=== PATIENT | female | born 1945 | race Caucasian/White ===

== ENCOUNTER 2020-01-01 09:20 | Emergency (ER) | payer MEDICARE, SELFPAY ==
--- NOTE | ~2020-01-01 | XR_ITS ---
EXAMINATION: XR hip LT min 2V EXAM DATE: 01/01/2020 10:13 INDICATION: No known recent injury provided at this time. Pain of the left hip. TECHNIQUE: Left hip frontal, crosstable lateral and 'frog-leg' projections for interpretation. Ther e is no prior study for comparison. FINDINGS: Smooth left hip femoral head contour, no radiographic evidence of avascular necrosis. Ther e is moderate left hip primary osteoarthritis. There are no acute fractures or dislocations identifie d. There is no subcutaneous gas. The soft tissue is unremarkable. There are no radiopaque foreign bodies. IMPRESSION: Moderate left hip osteoarthritis. Reviewed, dictated and finalized at location A.
[2020-01-01 09:25] VITALS: BP 165/86; PULSE 95; RESP 18; TEMP 37.2; O2SAT 96
--- NOTE | 2020-01-01 09:43 | ED.LOWEXIN ---
HPI - Extremity Injury (Lower) General Chief Complaint: Extremity Injury, Lower Stated Complaint: Left Hip Pain Time Seen by Provider: 01/01/20 09:30 History of Present Illness HPI Narrative: Chronic left hip pain. Worse for the past [address] Ledbetter in clinic and was started on Baclofen and medrol dose pack. After a few days she was feeling much better. Then the pain retrunded worse than before. Dr. Ledbetter suggested therapy. She felt that she was too busy and in too much pain for therapy. She came here hoping that there was something else that we could do. She does not want anything that will make her drowsy. Related Data Allergies Allergy/AdvReac Type Severity Reaction Status Date / Time No Known Allergies Allergy Verified 01/01/20 09:31 Review of Systems Review of Systems: All systems reviewed & are unremarkable except as noted in HPI and below Constitutional: Constitutional: Denies fever(s) Cardiovascular: Cardiovascular: Denies chest pain Respiratory: Respiratory: Denies dyspnea Musculoskeletal: Musculoskeletal: Denies back pain Neurologic: Denies numbness and Denies weakness [facility] Social History Social History Gender identity (if verbalized by the patient): Female Exam Const: General: healthy appearing, no acute distress and alert Orientation/consciousness: patient oriented x3 HENMT: Head: normal to inspection Neck: Neck: normal visual inspection and no lymphadenopathy Chest: Chest palpation & inspection: no tenderness Resp: Effort & Inspection: normal respiratory effort Auscultation: clear to auscultation bilaterally, no rales, no rhonchi and no wheezes Cardio: Jugular venous distension: no JVD Rate: regular rate Rhythm: regular rhythm Heart sounds: no murmurs GI: Inspection: non-distended GI Palp: Yes Soft to palpation and No Tenderness to palpation present (GI) Skin: General skin exam: normal color Neuro: General: patient oriented x3 and moves all extremities Speech: normal speech Extrem: Other: Tender over left hip. signifcant pain with minimal movment of the hip. Psych: Appearance: well kempt Affect: normal affect Course Vital Signs Vital signs: Vital Signs Temperature 37.2 C 01/01/20 09:25 Pulse Rate 95 01/01/20 09:25 Respiratory Rate 18 01/01/20 09:25 Blood Pressure 165/86 H 01/01/20 09:25 Pulse Oximetry 96 01/01/20 09:25 Temperature 37.2 C 01/01/20 09:25 Pulse Rate 78 01/01/20 12:15 Respiratory Rate 19 01/01/20 12:15 Blood Pressure 156/82 H 01/01/20 12:15 Pulse Oximetry 99 01/01/20 12:15 MDM - Extremity Injury (Lower) MDM Narrative Medical decision making narrative: She has moderate arthritis on x-ray. No sign of infection or inflammation on exam. I will prescribe a small amount of tramadol, which will hopefully get her through until she is able to arrange follow-up Medical Records Attestation: I reviewed the patient's medical records. Imaging Data Radiologist's impression: ITS Impressions Hip X-Ray 01/01/20 10:31 IMPRESSION: Moderate left hip osteoarthritis. Discharge Plan Discharge Clinical Impression: Hip osteoarthritis Qualifiers: Osteoarthritis type: unspecified Laterality: left Qualified Code(s): M16.12 - Unilateral primary osteoarthritis, left hip Patient Disposition: Home, Self-Care Condition: Stable Instructions: Osteoarthritis (ED) Prescriptions: New tramadol 50 mg tablet 50 mg PO Q6H PRN (Reason: pain) Qty: 15 RF: 0 Follow-up/Referrals: Yamile,DO Arie [Primary Care Provider] - Discharge Date/Time: 01/01/20 12:15
[2020-01-01] MEDS: ACETAMINOPHEN 500 MG TABLET 1000 MG PO (10:07)
--- NOTE | 2020-01-01 10:10 | PC.NURSE ---
Pt. to XR
[2020-01-01 11:40] VITALS: BP 151/67; PULSE 77; RESP 19; O2SAT 99
[2020-01-01 12:15] VITALS: BP 156/82; PULSE 78; RESP 19; O2SAT 99
== END 2020-01-01 12:15 | disposition home or self-care (01) ==
PROVIDERS: Emergency Provider Emergency Medicine; PCP Student in an Organized Health Care Education/Training Program
DX: M16.12 Unilateral primary osteoarthritis, left hip (principal)
CPT/HCPCS: 73502; 99283; A9270

== ENCOUNTER 2020-01-28 12:39 | Outpatient (CLI) | payer MEDICARE, SELFPAY ==
--- NOTE | ~2020-01-28 | XR_ITS ---
EXAMINATION: XR lg joint inject/asp w image DATE: 01/28/2020 13:42 INDICATION: Left hip pain TECHNIQUE: A time-out was performed to verify the patient's name, date of , and procedure to b e performed. The procedure including the risks, benefits, and alternatives was discussed with the pat ient. Risks discussed included bleeding and infection. The patient understood the risks and agreed to proceed. The skin overlying the left hip joint was prepped and draped in usual sterile fashion. An esthetic was administered with 1% lidocaine subcutaneously. A 22 G needle was advanced under fluoros copic guidance into the joint. Injection of 0.6 mL of Omnipaque 240 confirmed intra-articular positi on of the needle. Subsequently, injectate consisting of 4.5 mm of a 2:1 mixture of 0.25% Sensorcaine : 10 mg/mL Kenalog for a total dosage of 15 mg Kenalog was instilled. Washout of contrast was seen co nfirming intra-articular administration. The needle was removed and the entry site was cleaned and dr essed. There were no immediate complications. Fluoroscopy exposure time was 0.1 minutes. The total n umber of images was 1. FINDINGS: Real-time fluoroscopy demonstrates the needle in the left hip joint. Patient's pain prior t o procedure:10/09. Patient's pain following the procedure: 09/09. IMPRESSION: 1. Left hip joint injection of local anesthetic and steroid with decrease in the patient's presenting pain. Reviewed, dictated and finalized at location A. IMPRESSION: 1. Left hip joint injection of local anesthetic and steroid with decrease in th e patient's presenting pain.
== END 2020-01-28 12:40 | disposition home or self-care (01) ==
LOC: ANHIMG 12:42
PROVIDERS: PCP Student in an Organized Health Care Education/Training Program; Visit Provider Orthopaedic Surgery
DX: M25.552 Pain in left hip (principal)
CPT/HCPCS: 20610; 77002; J3301; Q9966

== ENCOUNTER 2020-05-04 14:31 | Outpatient (CLI) | payer MEDICARE, SELFPAY ==
--- NOTE | 2020-05-04 | ECHO_ITS ---
Patient Info Name: Myrna Nicole Age: 75 years : 1945 Gender: Female Ht: 62 in Wt: 190 lbs BSA: 1.98 m2 HR: 84 bpm BP: 137 / 90 mmHg Heart Rhythm: Sinus Rhythm Technical Quality: Good Exam Date: 05/04/2020 2:59 PM Exam Location: [facility] Pulmonary Patient Status: Outpatient Admit Date: 05/04/2020 Staff Ordering Physician: KENNETH STARR MD Dish Technician: Marixa Moore RDCS Attending Provider: KENNETH STARR MD Referring Physician: RO SAEED; Exam Type: CA echo doppler color flow Study Info Indications R60.9 - Edema, unspecified Complete two-dimensional, color flow and Doppler transthoracic echocardiogram is performed. Summary 1. Complete two-dimensional, color flow and Doppler transthoracic echocardiogram is performed. 2. Left ventricular chamber dimension is normal. 3. Left ventricular systolic function is normal, estimated at 60-65%. 4. Trivial mitral and tricuspid valve regurgitation. 5. Mildly sclerotic aortic valve which is not functionally stenotic. Left Ventricle Left ventricular chamber dimension is normal. Left ventricular systolic function is normal, estimated at 60-65%. The left ventricular diastolic function is normal. Left Atria Left atrial chamber dimension is normal. Right Atria Right atrial chamber dimension is normal. Aortic Valve The aortic valve is trileaflet. There is mild aortic valve sclerosis. Pulmonic Valve The pulmonic valve is normal. Mitral Valve The mitral valve has normal leaflets. There is trace mitral valve regurgitation. Tricuspid Valve The tricuspid valve leaflets are normal. There is trace tricuspid valve regurgitation. Pericardium/Pleural The pericardium appears normal. Aorta The aortic root size at the sinus of Valsalva is normal. Left Ventricular Outflow Tract Name Value Normal LVOT 2D LVOT Diameter 2.0 cm LVOT Doppler LVOT Peak Gradient 5 mmHg LVOT Mean Gradient 3 mmHg LVOT VTI 22 cm LVOT VTI/AV VTI Ratio 0.8 LVOT Stroke Volume 69 ml LVOT CO 5.6 l/min LVOT CI 2.8 l/min/m2 Pulmonic Valve Name Value Normal RVOT Doppler RVOT Peak Gradient 2 mmHg PV Doppler PV Peak Gradient 4 mmHg Mitral Valve Name Value Normal MV Doppler MV Decel Haskell 414 cm/s2 M
== END 2020-05-04 14:32 | disposition home or self-care (01) ==
PROVIDERS: PCP Student in an Organized Health Care Education/Training Program
DX: R60.9 Edema, unspecified (principal)
CPT/HCPCS: 93306

== ENCOUNTER 2021-09-17 09:11 | Outpatient (CLI) | payer MEDICARE, SELFPAY ==
--- NOTE | 2021-09-24 14:59 | WPDPFTINT ---
PFT Procedure Performed PFT Procedure Performed Spirometry with Pre/Post Bronchodilator Plethysmography (Lung Vol) Diffusing Cap (DLCO) Flow Vol Loop PFT Interpretation DOS: 09/17/2021 REQUESTING: Dr. Arie Ovalle REASON FOR TESTING: Chronic cough PULMONARY FUNCTION TESTS Results are reproducible and reliable. Spirometry: The FEV1 pre bronchodilator is 1.39 L, 73% predicted. This is at the lower limit of normal. The FVC pre-bronchodilator is 79% predicted, 1.93 L, normal. The FEV1/ FVC ratio is 72% which is normal. There is no statistically significant increase in flows after bronchodilator administration. Lung volumes: The total lung capacity is 97% predicted, normal. The residual volume is 120% predicted consistent with mild air trapping. The airway resistance is increased. Diffusion: DLCO is 73%, mildly decreased. Flow volume loop: Normal. IMPRESSION: This patient has normal spirometry, mild air trapping and a mild diffusion impairment. This is a nonspecific pattern. Lack of response to bronchodilator should not preclude use if clinically indicated. Mendy Carreon MD
== END 2021-09-17 09:12 | disposition home or self-care (01) ==
LOC: ANHPFT 09:12
PROVIDERS: PCP Student in an Organized Health Care Education/Training Program; Visit Provider Student in an Organized Health Care Education/Training Program
DX: R05.3 Chronic cough (principal); J44.9 Chronic obstructive pulmonary disease, unspecified
CPT/HCPCS: 94060; 94726; 94729